=== PATIENT | male | born 1955 | race Caucasian/White ===

== ENCOUNTER → 2016-07-20 | Outpatient (CLI) | payer OTHER ==
[~2016-07-20] MED LIST: AMLODIPINE BESYL5 MG PO; CITALOPRAM HBR40 MG PO; HYDROCODON-ACE1 EAC7 PO; LEVAQUIN PO; LEVOXYL0.137 MG PO; LIPITOR40 MG PO; MOBIC PO; OMEPRAZOLE20 M2 PO; VITAMIN D32000 UNIT PO
--- NOTE | ~2016-07-20 | EKG ---
PATIENT: POLO SCOTT UNIT #: [id number] Ventricular Rate: 74 BPM Atrial Rate: 74 BPM P-R Interval: 172 ms QRS Duration: 92 ms Q-T Interval: 356 ms QTC Calculation(Bezet): 395 ms P [place]: 0 degrees Calculated R [place]: 41 degrees Calculated T [place]: 77 degrees Diagnosis Line: Normal sinus rhythm Diagnosis Line: Nonspecific T wave abnormality Diagnosis Line: Abnormal ECG Diagnosis Line: No previous ECGs available Diagnosis Line: Confirmed by MEIR NUÑEZ MD ([id number]) on Diagnosis Line: 07/22/2016 11:59:16 PM INTERPRETING MD: JOAQUIN GRIFFIN
[2016-07-20 12:45] LABS: HEMOGLOBIN 13.9 gm/dL (13.0-16.0); MEAN CELL VOLUME 88.2 FL (83-96); MEAN CORPUSCULAR HEMOGLOBIN 30.6 PG (28-34); MEAN CORPUSCULAR HGB CONC 34.7 g/dL (30-36); MEAN PLATELET VOLUME 7.9 FL (6.5-11.5); RED BLOOD COUNT 4.53 X10e (3.90-5.60); RED CELL DISTRIBUTION WIDTH 14.2 % (11.0-15.5); WHITE BLOOD COUNT 9.1 X10e3 (4.0-10.5)
[2016-07-20 13:14] LABS: BLOOD UREA NITROGEN 17 mg/dL (9-23); BUN/CREATININE RATIO 15.45; CALCIUM SERUM 9.4 mg/dL (8.4-10.2); CARBON DIOXIDE 28 mmol/L (22-31); CHLORIDE 103 mmol/L (100-111); CREATININE SERUM 1.1 mg/dL (0.6-1.4); GLOM FILT RATE Estimated ABOVE60 mL/min (>60); GLUCOSE FASTING 81 mg/dL (70-110); POTASSIUM 4.9 mmol/L (3.5-5.1); SODIUM 139 mmol/L (135-145)
[2016-07-20 13:34] LABS: URINE APPEARANCE CLEAR; URINE BILIRUBIN NEG (NEG); URINE BLOOD NEG (NEG); URINE COLOR YELLOW; URINE GLUCOSE NEG (NEG); URINE KETONE NEG (NEG); URINE LEUKOCYTE ESTERASE NEG (NEG); URINE NITRATE NEG (NEG); URINE PROTEIN NEG (NEG); URINE SPECIFIC GRAVITY 1.025 (1.003-1.035)
[2016-07-20 13:44] LABS: URINE SOURCE CLEAN CATCH
[2016-07-20 13:46] LABS: CULTURE INDICATED? NO
== END | disposition home or self-care (01) ==
LOC: CAMB 11:59
PROVIDERS: Orthopaedic Surgery
DX: Z01.818 Encounter for other preprocedural examination (principal); M19.011 Primary osteoarthritis, right shoulder; R94.31 Abnormal electrocardiogram [ECG] [EKG]
CPT/HCPCS: 36415; 80048; 81003; 85027; 87070; 93005

== ENCOUNTER 2016-08-01 05:16 | Inpatient (IN) | payer OTHER ==
--- NOTE | ~2016-08-01 | CR72 ---
[facility] A Service of [facility] & [facility] RADIOLOGY TEXT RESULTS PATIENT: POLO SCOTT LOCATION: C4B 451-01 : 55 UNIT #: [id number] AGE: [address]: aRvindra Larson MD SEX: M ORDER DR: [id number] [facility] [address] [place], [place] [address] [id number] I MR#: [id number] Acc #: [id number] NAME: POLO SCOTT : 1955 SEX: M STUDY DATE/TIME: 08/04/2016 10:34 UNIT: C4B ROOM: [facility] STUDY DESCRIPTION: CR Chest Single View Portable Attending Physician: Ravindra Larson M.D. Ordering Physician: Ravindra Larson M.D. Primary Care Physician: No Primary Care Physician MEDICAL IMAGING REPORT This report is preliminary unless electronic signature is present EXAM Portable AP view of the chest COMPARISON November 16, 2015. INDICATIONS A 60-year-old male with nausea, diaphoresis and dyspnea today. Right shoulder arthroplasty placement 3 days ago. FINDINGS There is a right shoulder hemiarthroplasty. The humeral component appears intact without evidence of complication. There is no dislocation. There is no evidence of pneumothorax. Lung volumes are quite low, and there is increasing elevation of the right hemidiaphragm. There is apparent cardiomegaly with cephalization of pulmonary vasculature and interstitial opacities seen in the right lower lobe and right midlung with more confluent opacification of the left lower chest likely a product of soft tissue attenuation and cardiac shadow. Findings may reflect bronchovascular crowding and/or atelectasis. Also consider pulmonary edema. While the appearance is unchanged, and a left lower chest small pleural effusion cannot be excluded. Correlation to exclude signs of developing pneumonia recommended. IMPRESSION Cardiomegaly with diminished lung volumes from comparison. Increased interstitial opacities throughout the lungs, possibly reflecting atelectasis or mild pulmonary edema. Opacification of the left lower chest is confluent, and not significantly changed from November 30, 2015, possibly a product of overlapping breast and cardiac shadow. Left basilar pneumonia or pleural effusion cannot entirely be excluded. Clinical correlation recommended. [facility] A Service of [facility] & [facility] RADIOLOGY TEXT RESULTS PATIENT: POLO SCOTT LOCATION: C4 451-01 : 55 UNIT #: [id number] AGE: [address]: Ravindra Larson MD SEX: M ORDER DR: Dictated by... Mahad Epstein M.D. THIS IS AN ELECTRONICALLY VERIFIED REPORT Mahad Epstein M.D. at 08/07/2016 10:07 AM Danna TD: 08/04/2016 22:00 JOB #: [id number] MEDICAL IMAGING REPORT Page 1 of 1 COPY
--- NOTE | ~2016-08-01 | EKG ---
PATIENT: POLO SCOTT UNIT #: [id number] Ventricular Rate: 83 BPM Atrial Rate: 83 BPM P-R Interval: 178 ms QRS Duration: 94 ms Q-T Interval: 384 ms QTC Calculation(Bezet): 451 ms P [place]: 69 degrees Calculated R [place]: 60 degrees Calculated T [place]: 87 degrees Diagnosis Line: Normal sinus rhythm Diagnosis Line: Nonspecific T wave abnormality Diagnosis Line: Otherwise normal ECG Diagnosis Line: When compared with ECG of 20-JUL-2016 12:16, Diagnosis Line: QT has lengthened Diagnosis Line: Confirmed by MISHEL ROMERO MD ([id number]) on 08/06/2016 Diagnosis Line: 10:53:08 PM INTERPRETING MD: NICK GRIFFIN
--- NOTE | ~2016-08-01 | CR63 ---
[facility] RADIOLOGY TEXT RESULTS PATIENT: POLO SCOTT LOCATION: C4B 451-01 : 55 UNIT #: [id number] AGE: [address]: Ravindra Larson MD SEX: M ORDER DR: [id number] [facility] [address] [place], [place] [address] [id number] I MR#: [id number] Acc #: [id number] NAME: POLO SCOTT : 1955 SEX: M STUDY DATE/TIME: 08/05/2016 18:11 UNIT: C4B ROOM: [facility] STUDY DESCRIPTION: CR Chest 2 View Attending Physician: Ravindra Larson M.D. Ordering Physician: Ed Doc Erica Porter Primary Care Physician: No Primary Care Physician MEDICAL IMAGING REPORT This report is preliminary unless electronic signature is present EXAM PA and lateral chest. HISTORY Congestion and shortness of air since yesterday. FINDINGS Mild cardiac enlargement is accentuated by low lung volumes. Mild elevation of the right hemidiaphragm. Probable minimal atelectasis in the right base. No definite pulmonary consolidation or pleural effusion. Right shoulder prosthesis. IMPRESSION 1. Probable minimal atelectasis in the right base. No definite airspace infiltrates. 2. There are moderate cardiac enlargement is accentuated by low lung volumes. Mild chronic elevation of the right hemidiaphragm. Dictated by... Brenden Marino M.D. THIS IS AN ELECTRONICALLY VERIFIED REPORT Brenden Marino M.D. at 08/06/2016 3:04 PM DFL/gz TD: 08/06/2016 09:04 JOB #: [id number] MEDICAL IMAGING REPORT Page 1 of 1 COPY
--- NOTE | ~2016-08-01 | CR230 ---
[facility] A Service of [facility] & [facility] RADIOLOGY TEXT RESULTS PATIENT: POLO SCOTT LOCATION: C4B 451-01 : 55 UNIT #: [id number] AGE: [address]: Ravindra Larson MD SEX: M ORDER DR: [id number] [facility] [address] [place], [place] [address] [id number] I MR#: [id number] Acc #: [id number] NAME: POLO SCOTT : 1955 SEX: M STUDY DATE/TIME: 08/01/2016 12:35 UNIT: C4B ROOM: [facility] STUDY DESCRIPTION: CR Shoulder Min 2 View Rt Attending Physician: Ravindra Larson M.D. Ordering Physician: Ravindra Larson M.D. Primary Care Physician: No Primary Care Physician MEDICAL IMAGING REPORT This report is preliminary unless electronic signature is present Exam Right shoulder 08/01/2016. INDICATIONS Status post shoulder arthroplasty today. COMPARISON 2 views of the right shoulder are compared with 04/19/2016. FINDINGS There has been right shoulder hemiarthroplasty. The humeral prosthesis appears well positioned. No complications are seen. Surgical drain is present. There is AC joint arthropathy. IMPRESSION Satisfactory appearance of right shoulder hemiarthroplasty. Dictated by... Alfredo Boucher Jr., M.D. THIS IS AN ELECTRONICALLY VERIFIED REPORT Alfredo Boucher Jr., M.D. at 08/02/2016 8:10 AM DENI/debbi TD: 08/01/2016 16:28 JOB #: [id number] MEDICAL IMAGING REPORT Page 1 of 1 COPY
--- NOTE | ~2016-08-01 | DS ---
Unit #: [id number] #: [id number] Patient: POLO PARRA [id number] [address] [place], [place] [address] [id number] I MR#: [id number] NAME: POLO PARRA ROOM: 451 Age: 60 Sex: M Admission Date: 08/01/2016 : 1955 Discharge Date: 08/07/2016 Attending Physician: Ravindra Larson M.D. Primary Care Physician: Primary Care Physician No DISCHARGE SUMMARY ADMITTING DIAGNOSIS Right glenohumeral joint arthritis. DISCHARGE DIAGNOSIS Right glenohumeral joint arthritis, status post right total shoulder arthroplasty. SECONDARY DIAGNOSES Include: 1. Right lower lobe atelectasis. 2. Urinary retention. 3. Status post laryngectomy with tracheostoma. 4. Hypertension. 5. Depression. 6. Hyperlipidemia. 7. Hypothyroidism. 8. Vitamin D deficiency. 9. Gastroesophageal reflux disease. 10. Benign prostatic hypertrophy. 11. History of laryngeal cancer. CONSULTING PHYSICIANS 1. Dr. Fernandez, Urology. 2. Dr. Schmitz, Pulmonary. PROCEDURES On 08/01/2016, the patient underwent a right total shoulder arthroplasty. Please see operative report for further details. HISTORY Mr. Parra is a 60-year-old male who has right shoulder osteoarthritis. He has failed conservative management and was referred to us to discuss right total shoulder arthroplasty. The risks, benefits, and alternatives were discussed with the patient and he elected to proceed with surgery on 08/01/2016. HOSPITAL COURSE The night of surgery, the patient was transferred to the orthopedic unit for postoperative care. The night of surgery, the patient remained stable. Postop x-rays of the right shoulder showed that he was status post right total shoulder arthroplasty. Hardware remained in correct anatomical alignment, no evidence of loosening or migration. Unit #: [id number] #: [id number] Patient: POLO PARRA On postop day #1, the patient's vital signs remained stable. His oxygen was 98% on 5 L of oxygen. He was awake, alert, and oriented x3, in no acute distress. His right upper extremity incision was clean, dry, and intact with a small amount of serosanguineous drainage on the dressing. He had no surrounding erythema, warmth, or hematoma. He was neurovascularly intact in the median, ulnar, and radial nerves. He had normal sensation to light touch in all 5 digits. He had 85 mL of serosanguineous drainage out of his Hemovac drain overnight. This was discontinued in the room on postop day #1. He remained nonweightbearing of the right upper extremity in a sling. He worked with physical therapy on pendulum as well as range of motion in the elbow, wrist, and hand. Pain meds were increased on postop day #1 due to poor pain control. He was on aspirin and SCDs for DVT prophylaxis. His white blood cell count was 9.3 and hemoglobin was 11.6. The patient had difficulty voiding and so Urology was consulted and a Ferro catheter was placed. On postop day #2, the patient remained stable. He was afebrile and his vital signs were stable. We were able to wean his oxygen and he was stable on room air. His incision was clean, dry, and intact with no surrounding erythema, warmth, or hematoma. He remained neurovascularly intact in the median, ulnar, and radial nerves. He had normal sensation to light touch in all 5 digits. His white blood cell count was 8.7 and hemoglobin was 10.8. He continued to work with physical therapy. shutdown planner was consulted for discharge to subacute rehab versus home health. The patient was seen by Dr. Fernandez, who ordered for the Ferro to be discharged on postop day #3. On postop day #3, the patient was complaining of chest pain and shortness of breath. He was afebrile. His blood pressure, heart rate, and oxygen levels remained stable. He was awake, alert, and oriented x3. His right upper extremity incision was clean, dry, and intact, and he was neurovascularly intact distally. A stat portable chest x-ray was ordered, which showed a left pleural effusion versus developing pneumonia. A stat EKG showed that he had a normal sinus rhythm. He had negative troponin and negative BNP. His CK was drawn, which was initially 525. This continued to trend down throughout the day and was 490 later in the day. Pulmonary was consulted for further workup. On postop day #4, the patient reported feeling better, but he still had excess sputum production. He was afebrile, and his vital signs were stable. He was awake, alert, and oriented x3, in no acute distress. His right upper extremity dressing was clean, dry, and intact. He was neurovascularly intact distally. A chest x-ray was repeated, which showed minimal atelectasis in the base of the right lung as well as mild chronic elevation of the right hemidiaphragm. Sputum was sent for Gram stain and culture. The patient was seen by Pulmonary, who ordered repeat labs and repeat chest x-ray. One-time dose of Lasix was ordered and given. They did not feel that the patient had pneumonia, but we continued to monitor his sputum cultures. They also wanted to rule out any cardiac etiologies. At this point, the patient's urinary retention had resolved. On postop day #5, the patient remained stable and he reported that his shortness of air had improved. He was afebrile, and vital signs were stable. He was awake, alert, and oriented x3, in no acute distress. His right upper extremity dressing was clean, dry, and intact. He was neurovascularly intact distally. His sputum Gram stain showed gram-negative rods, gram-positive cocci, and gram-positive rods. The Unit #: [id number] #: [id number] Patient: POLO PARRA cultures were pending at this time. Chest x-ray showed atelectasis of the right mid-lower lung. Breathing treatments were ordered by Pulmonary and a repeat chest x-ray for 08/07/2016 was ordered to be taken. On postop day #6, the patient remained stable. He reports that the shortness of air is improving. His vital signs are stable. His right upper extremity incision is clean, dry, and intact. He is neurovascularly intact distally. He has symmetric chest rise and no increased work of breathing. Repeat chest x-ray showed stable cardiomegaly with chronic elevation of the right hemidiaphragm. There was some persistent atelectasis in the right lung base. Pulmonary felt that this could be related to questionable paralysis secondary to radical neck dissection after laryngectomy with tracheostoma in the past. They prescribed Levaquin for 7 days and we would like him to follow up in the office in 3 weeks' time. At this time, we will plan to discharge him home with home health. CONDITION AT DISCHARGE Stable. DISPOSITION The patient will be discharged home where he has family and home health to help with postoperative care. DISCHARGE MEDICATIONS Celexa 40 mg p.o. daily; Norvasc 5 mg p.o. daily; Lipitor 40 mg p.o. daily; Synthroid 0.137 mg p.o. daily; vitamin D3 2000 units p.o. b.i.d.; Levaquin 500 mg 1 tab p.o. daily x7 days, the script was left for the patient; [place] 7.5/325 mg 1 to 2 tabs p.o. q.4 hours p.r.n., dispense #65, prescription was also left for the patient. DISCHARGE INSTRUCTIONS The patient will follow up with Dr. Larson on 08/21/2016. He will follow up with Dr. Schmitz in 3 weeks' time. He will remain nonweightbearing of the right upper extremity in a sling. He may remove his sling 2 to 3 times per day to perform pendulum as well as range of motion of the elbow, wrist, and hand. He will perform daily dressing changes at the right upper extremity incision site. He may shower, but he is not to get his incision wet. He must keep an occlusive dressing over the incision site when showering. Dictated by... Ben Thompson APRN for Erica Borjas/andrew TD: 08/08/2016 15:13 JOB #: [id number] Unit #: [id number] #: [id number] Patient: POLO PARRA DISCHARGE SUMMARY Page 1 of 1 X BEN THOMPSON APRN X DISCHARGE SUMMARY
--- NOTE | ~2016-08-01 | CO ---
Unit #: [id number] #: [id number] Patient: POLO SCOTT [id number] [address] [place], [place] [address] [id number] I MR#: [id number] NAME: POLO SCOTT ROOM: 451 Age: 60 Sex: M Admission Date: 08/01/2016 : 1955 Attending Physician: Ravindra Larson M.D. Consultation Date: 08/05/2016 CONSULTATION REPORT REASON FOR CONSULTATION Abnormal chest x-ray. HISTORY OF PRESENT ILLNESS This is a 60-year-old male, who is postop day #4 right total shoulder arthroplasty. Yesterday, he started developing some nausea and congestion, which has since resolved, but then he has been complaining of some rattling in the chest and feeling little bit more short of breath than normal. The patient has laryngectomy secondary to history of laryngeal cancer and was intubated for this procedure. He has had no fevers or elevation in his white count. He is a lifelong nonsmoker and has no history of COPD. He does not go on a ventilator at night, but has never been checked for sleep apnea, but has open stoma. He denies any history of heart disease. He does have some high blood pressure. He has had no stroke in the past. PAST MEDICAL HISTORY Laryngeal CA, esophageal reflux disease, hypertension, hypothyroidism, dyslipidemia, and BPH. PAST SURGICAL HISTORY Laryngectomy, right total shoulder arthroplasty, knee surgery, prostate biopsy. ALLERGIES None. MEDICATIONS The patient is on Lipitor, Senokot, Flomax, Celexa, Norvasc, and Synthroid. SOCIAL HISTORY The patient denies any history of tobacco, alcohol, or illicit drug use. His vaccination status is unknown. FAMILY HISTORY Noncontributory. REVIEW OF SYSTEMS Complete review of systems was performed, pertinent positives include chief complaint. PHYSICAL EXAMINATION VITAL SIGNS: Currently stable. He is afebrile. He has been afebrile since admission. Unit #: [id number] #: [id number] Patient: POLO SCOTT HEENT: Eyes; PERRLA. Extraocular movements are intact. Sclerae are clear. Nose is patent and symmetrical. Throat without erythema or exudate. NECK: With an open stoma. HEART: Regular rate and rhythm without murmur appreciated. No thrills palpated. LUNGS: Rales bilaterally. There is no egophony or dullness to percussion. ABDOMEN: Soft, obese, nontender. EXTREMITIES: Without clubbing, cyanosis, or edema. SKIN: Warm, dry, and intact. LABORATORY STUDIES LABORATORY RESULTS: Reviewed by myself. IMAGING STUDIES: Chest x-ray, reviewed by myself. IMPRESSION 1. Acute bilateral pulmonary opacities, suspect secondary to pulmonary edema from volume during procedure and since admission, doubt pneumonia as the patient has no fever and no white count; however, we will check cultures. 2. Status post right total shoulder arthroplasty. 3. Hypothyroidism. 4. History of laryngeal cancer, status post laryngectomy. RECOMMENDATIONS 1. We will check O2 sats. 2. Check troponin and BNP. 3. Hep-Lock IV fluids. 4. Lasix x1. 5. Check sputum cultures. 6. We will follow. Dictated by... Kodi Whitlock/andrew TD: 08/06/2016 03:55 JOB #: [id number] CONSULTATION REPORT Page 1 of 1 X Michaela Kumar DO X CONSULTATION REPORT
--- NOTE | ~2016-08-01 | DS ---
Unit #: [id number] #: [id number] Patient: POLO SCOTT [id number] [address] [address] [id number] I MR#: [id number] NAME: POLO SCOTT ROOM: [facility] Age: 60 Sex: M Admission Date: 08/01/2016 : 1955 Discharge Date: 08/07/2016 Attending Physician: Ravindra Larson M.D. Primary Care Physician: Primary Care Physician No DISCHARGE SUMMARY ADDENDUM Ben Thompson APRN dictating for Dr. Larson. On 08/07/2016, sputum culture results were positive for Serratia marcescens. Since the cultures were sensitive to Levaquin, Dr. Schmitz with Pulmonary order for the patient to be on a 7 day course of Levaquin and follow up in his office in 3 weeks' time for a chest x-ray. The patient was seen by Dr. Rawls for urinary retention. A Ferro catheter was placed on 08/03/2016. The patient remained on Flomax. Dr. Rawls ordered for the Ferro to be removed on 08/04/2016. Then a voiding trial was conducted. The patient was able to void after the Ferro catheter was removed and his urinary retention resolved. Dictated by... Ben Thompson APRN for Erica Borjas/andrew TD: 08/08/2016 22:33 JOB #: [id number] DISCHARGE SUMMARY Page 1 of 1 X BEN THOMPSON APRN X DISCHARGE SUMMARY
--- NOTE | ~2016-08-01 | CO ---
Unit #: [id number] #: [id number] Patient: POLO SCOTT [id number] [address] [place], [place] [address] [id number] I MR#: [id number] NAME: POLO SCOTT ROOM: 451 Age: 60 Sex: M Admission Date: 08/01/2016 : 1955 Attending Physician: Ravindra Larson M.D. Primary Care Physician: No Primary Care Physician Requesting Physician: Ravindra Larson M.D. CONSULTATION REPORT REASON FOR CONSULTATION Urinary retention. HISTORY OF PRESENT ILLNESS The patient is a 60-year-old male who is postoperative day 2 from a right total shoulder arthroplasty and right shoulder biceps tenodesis. He was followed for a transiently elevated PSA in our office, but he has not had significant BPH symptoms. He required in and out catheterization and ultimately a Ferro catheter after surgery. He was started on Flomax 2 days ago. PAST MEDICAL HISTORY 1. Throat cancer. 2. Gastroesophageal reflux disease. 3. Hypertension. PAST SURGICAL HISTORY 1. Throat surgery. 2. Right shoulder. 3. Knee. 4. Prostate biopsy. SOCIAL HISTORY Negative for alcohol. PHYSICAL EXAMINATION GENERAL: Well-developed, obese white male in no acute distress. VITALS: Temperature 99.1, blood pressure 132/71, pulse 81, respiratory rate 20. HEENT: Normocephalic, atraumatic. The patient is appearing comfortable. He has a sling on his right shoulder. ABDOMEN: Soft, nontender and nondistended. Ferro catheter is draining clear urine. RECTAL: Digital rectal exam reveals a mildly enlarged prostate with no nodules. ASSESSMENT Urinary retention. PLAN I agree with the Flomax. Will plan a voiding trial tomorrow. If he fails the voiding trial, he can go home with his Ferro catheter on Flomax and we will repeat the voiding in our office in one week. Unit #: [id number] #: [id number] Patient: POLO SCOTT Dictated by..Tirso Rawls M.D. MDP/gz TD: 08/03/2016 15:30 JOB #: [id number] CONSULTATION REPORT Page 1 of 1 X Ian Rawls MD CONSULTATION REPORT
--- NOTE | ~2016-08-01 | OR ---
Unit #: [id number] #: [id number] Patient: POLO PARRA [id number] [address] [place], [place] [address] [id number] MR#: [id number] NAME: POLO PARRA ROOM: [facility] Date of Procedure: 08/01/2016 Admission Date: 08/01/2016 Surgeon: Ravindra Larson M.D. : 1955 Attending Physician: Ravindra Larson M.D. Primary Care Physician: Primary Care Physician No OPERATIVE REPORT PREOPERATIVE DIAGNOSIS Right shoulder osteoarthritis. POSTOPERATIVE DIAGNOSES 1. Right shoulder osteoarthritis. 2. Biceps tenosynovitis. PROCEDURES PERFORMED 1. Right total shoulder arthroplasty. 2. Right shoulder biceps tenodesis. IMPLANTS 1. DJO Surgical size 14 AltiVate short humeral stem with a 50 x 18 mm eccentric offset humeral head component. 2. DJO Surgical AltiVate cemented E-+ all-polyethylene glenoid, 50 mm. LOADER ENGINEER Olga Singh APRN, RNFA. ANESTHESIA General with interscalene nerve block. ESTIMATED BLOOD LOSS 200 mL. COMPLICATIONS None apparent. SPECIMENS Humeral head to Pathology. INDICATIONS FOR PROCEDURE Mr. Parra is a 60-year-old gentleman with right shoulder osteoarthritis, who has failed conservative management. We have discussed total shoulder arthroplasty. Risks, benefits, and alternatives have been reviewed and he elected to proceed. DESCRIPTION OF PROCEDURE The patient was identified in the preoperative holding area. The operative site was marked. A preoperative regional anesthetic block was performed. Preoperative antibiotics were administered. The patient was brought to the operating room and placed supine on the operating table. A Unit #: [id number] #: [id number] Patient: OPLO PARRA general anesthetic was induced. The patient was positioned in a beach-chair position. The right upper extremity was prepped and draped in sterile fashion. A standard deltopectoral approach was performed. The cephalic vein was taken medially with the pectoralis major muscle. The subdeltoid space was developed. The rotator cuff was intact. The long head of the biceps tendon sheath was opened. There was hypertrophic tenosynovium over the biceps. A biceps tenodesis was performed to the superior border of the pectoralis major tendon with a running locking Krackow suture utilizing #2 FiberWire. The sheath was opened up all the way into the rotator interval and the biceps tendon excised. The lesser tuberosity osteotomy was performed and the shoulder was dislocated anteriorly. The capsular attachments were taken down and released. The head was fully exposed. Osteotome was used to remove osteophytes around the humeral head. The extramedullary cutting guide was secured in 30 degrees of retroversion and the humeral head osteotomy performed. The humerus was then dislocated posteriorly and attention turned to glenoid exposure. A circumferential capsular labral release was performed. The labrum was excised. Once we had achieved adequate glenoid exposure, the glenoid was sized to a size 50 mm component. The centering pin was then drilled. We then reamed with a 50 mm reamer. The patient had slight preferential posterior wear with a clearly visible tidemark, but no significant posterior glenoid loss and really not even a B2 type morphology. This is more consistent with a B1 glenoid. The 3 peripheral peg holes were drilled followed by the centering hole. We then trialed the glenoid, which had good stability. We then prepared the glenoid for cementing according to standard technique. Cement was mixed and we cemented all 4 peg holes. The real component was opened and impacted in place. Initial curing of the cement was performed and then attention was turned to the humerus. The humerus was then reamed and broached up to a size 14. The real 14 stem was opened and impacted in place. Prior to stem insertion, 4 FiberTape sutures were passed through the humeral canal and around the stem for subscap repair. We put in place the real 50 x 18 mm eccentric head. The arm was taken through range of motion and the shoulder had good stability with a humeral head well aligned at the glenoid with the arm in neutral rotation. We had good 50% posterior pushback and spontaneous recentering on the glenoid. The lesser tuberosity was then repaired with 4 FiberTape sutures. The rotator interval was closed. The wound was irrigated with pulsatile lavage. A subdeltoid drain was placed. The wound was closed in a layered fashion with 0 Vicryl, 2-0 Vicryl, and Monocryl in the skin. Steri-Strips and sterile dressings were applied. DISPOSITION Stable to the recovery room. Dictated by... Ravindra Larson M.D. ANA/andrew TD: 08/02/2016 05:22 JOB #: [id number] Unit #: [id number] #: [id number] Patient: POLO PARRA OPERATIVE REPORT Page 1 of 1 X Ravindra Larson MD PROCEDURE OPERATIVE NOTE
--- NOTE | ~2016-08-01 | CR72 ---
[facility] Service of [facility] & [facility] RADIOLOGY TEXT RESULTS PATIENT: POLO SCOTT LOCATION: [facility] 451 : 55 UNIT #: [id number] AGE: [address]: Ravindra Larson MD SEX: M ORDER DR: [id number] [facility] [address] [place], [place] [address] [id number] I MR#: [id number] Acc #: [id number] NAME: POLO SCOTT : 1955 SEX: M STUDY DATE/TIME: 08/06/2016 6:18 UNIT: C4B ROOM: [facility] STUDY DESCRIPTION: CR Chest Single View Portable Attending Physician: Ravindra Larson M.D. Ordering Physician: Michaela Kumar D.O. Primary Care Physician: No Primary Care Physician MEDICAL IMAGING REPORT This report is preliminary unless electronic signature is present EXAM Portable chest x-ray 08/06/2016. HISTORY Left lung effusion versus pneumonia. TECHNIQUE AP radiograph of the chest presented today. COMPARISON 08/05/2016. FINDINGS Postoperative changes right shoulder arthroplasty. Stable moderate cardiac enlargement. Stable elevation right hemidiaphragm. Band-like subsegmental atelectasis right mid to lower lung zone, more conspicuous than on yesterday's examination, but probably not changed in overall extent. Remainder of right lung clear. Left lung shows no compelling evidence of pneumonia. No dense airspace disease, pleural effusion or pneumothorax. Healed granulomatous disease in the right lung is stable. No suspicious nodule. Dictated by... Gallo Moreira M.D. THIS IS AN ELECTRONICALLY VERIFIED REPORT Gallo Moreira M.D. at 08/07/2016 6:04 PM GIACOMO/debbi TD: 08/06/2016 11:46 JOB #: [id number] MEDICAL IMAGING REPORT [facility] Service of [facility] RADIOLOGY TEXT RESULTS PATIENT: POLO SCOTT LOCATION: [facility] : 55 UNIT #: [id number] AGE: [address]: Ravindra Larson MD SEX: M ORDER DR: Page 1 of 1 COPY
--- NOTE | ~2016-08-01 | CR63 ---
[facility] A Service of [facility] & [facility] RADIOLOGY TEXT RESULTS PATIENT: POLO SCOTT LOCATION: C4B 451-01 : 55 UNIT #: [id number] AGE: [address]: Ravindra Larson MD SEX: M ORDER DR: [id number] [facility] [address] [place], [place] [address] [id number] I MR#: [id number] Acc #: [id number] NAME: POLO SCOTT : 1955 SEX: M STUDY DATE/TIME: 08/07/2016 7:06 UNIT: C4B ROOM: [facility] STUDY DESCRIPTION: CR Chest 2 View Attending Physician: Ravindra Larson M.D. Ordering Physician: Nahid Schmitz Primary Care Physician: Primary Care Physician No MEDICAL IMAGING REPORT This report is preliminary unless electronic signature is present EXAM Chest x-ray, 08/07/16 INDICATIONS Shortness of air and weakness. History of laryngeal cancer and hypertension. FINDINGS 2 views of the chest are compared 08/06/2016. Cardiomegaly is stable. There is chronic elevation of the right hemidiaphragm. There is a persistent right lung base atelectasis. No pneumothorax is seen. Patient has a right shoulder arthroplasty. IMPRESSION Stable cardiomegaly with chronic elevation of the right hemidiaphragm. There is some persistent atelectasis in the right lung base. Dictated by... Alfredo Boucher Jr., M.D. THIS IS AN ELECTRONICALLY VERIFIED REPORT Alfredo Boucher Jr., M.D. at 08/07/2016 1:37 PM DENI/denia TD: 08/07/2016 12:10 JOB #: [id number] MEDICAL IMAGING REPORT Page 1 of 1 COPY
[~2016-08-01 05:16] MED LIST changes: -HYDROCODON-ACE1 EAC7 PO; -LEVAQUIN PO
[2016-08-02 04:46] LABS: HEMATOCRIT 34.4 % (38.0-50.0); HEMOGLOBIN 11.6 gm/dL (13.0-16.0); MEAN CELL VOLUME 90.4 FL (83-96); MEAN CORPUSCULAR HEMOGLOBIN 30.5 PG (28-34); MEAN CORPUSCULAR HGB CONC 33.7 g/dL (30-36); MEAN PLATELET VOLUME 7.7 FL (6.5-11.5); RED BLOOD COUNT 3.81 X10e (3.90-5.60); RED CELL DISTRIBUTION WIDTH 14.9 % (11.0-15.5); WHITE BLOOD COUNT 9.3 X10e3 (4.0-10.5)
[2016-08-03 04:17] LABS: HEMOGLOBIN 10.8 gm/dL (13.0-16.0); MEAN CELL VOLUME 90.7 FL (83-96); MEAN CORPUSCULAR HEMOGLOBIN 31.5 PG (28-34); MEAN CORPUSCULAR HGB CONC 34.7 g/dL (30-36); MEAN PLATELET VOLUME 7.5 FL (6.5-11.5); RED BLOOD COUNT 3.42 X10e (3.90-5.60); WHITE BLOOD COUNT 8.7 X10e3 (4.0-10.5)
[2016-08-04 11:55] LABS: BASOPHIL% 0.3 % (0-2.5); EOSINOPHIL# 0.2 X10e3 (0-0.7); EOSINOPHIL% 2.2 % (0.0-7.0); HEMATOCRIT 29.8 % (38.0-50.0); HEMOGLOBIN 10.4 gm/dL (13.0-16.0); LYMPHOCYTE# 0.8 X10e3 (1.0-3.5); LYMPHOCYTE% 9.6 % (17.0-45.0); MEAN CELL VOLUME 89.5 FL (83-96); MEAN CORPUSCULAR HEMOGLOBIN 31.3 PG (28-34); MEAN CORPUSCULAR HGB CONC 34.9 g/dL (30-36); MEAN PLATELET VOLUME 7.7 FL (6.5-11.5); MONOCYTE# 0.8 X10e3 (0-1.0); MONOCYTE% 10.1 % (3.0-12.0); NEUTROPHIL# 6.4 X10e3 (1.5-7.1); NEUTROPHIL% 77.8 % (40-75); PLATELET COUNT 248 X10e3 (140-420); RED BLOOD COUNT 3.33 X10e (3.90-5.60); RED CELL DISTRIBUTION WIDTH 14.8 % (11.0-15.5); WHITE BLOOD COUNT 8.2 X10e3 (4.0-10.5)
[2016-08-04 11:58] LABS: DIFF IND NO
[2016-08-04 12:50] LABS: %MB 1.5 % (0.0-4.0); MB 7.9 ng/ml
[2016-08-04 12:51] LABS: BUN/CREATININE RATIO 12.72; CALCIUM SERUM 8.3 mg/dL (8.4-10.2); CREATININE SERUM 1.1 mg/dL (0.6-1.4); GLOM FILT RATE Estimated 72.6 mL/min (>60); POTASSIUM 4.3 mmol/L (3.5-5.1)
[2016-08-04 17:08] LABS: %MB 0.6 % (0.0-4.0)
[2016-08-04 23:27] LABS: %MB 0.7 % (0.0-4.0); MB 3.6 ng/ml
[2016-08-05 10:23] LABS: BASOPHIL% 0.9 % (0-2.5); EOSINOPHIL# 0.3 X10e3 (0-0.7); EOSINOPHIL% 4.7 % (0.0-7.0); HEMATOCRIT 30.8 % (38.0-50.0); HEMOGLOBIN 10.5 gm/dL (13.0-16.0); LYMPHOCYTE# 0.7 X10e3 (1.0-3.5); LYMPHOCYTE% 11.9 % (17.0-45.0); MEAN CELL VOLUME 89.9 FL (83-96); MEAN CORPUSCULAR HEMOGLOBIN 30.5 PG (28-34); MEAN CORPUSCULAR HGB CONC 33.9 g/dL (30-36); MEAN PLATELET VOLUME 7.9 FL (6.5-11.5); MONOCYTE# 0.5 X10e3 (0-1.0); MONOCYTE% 9.7 % (3.0-12.0); NEUTROPHIL# 4.1 X10e3 (1.5-7.1); NEUTROPHIL% 72.8 % (40-75); PLATELET COUNT 270 X10e3 (140-420); RED BLOOD COUNT 3.43 X10e (3.90-5.60); RED CELL DISTRIBUTION WIDTH 14.6 % (11.0-15.5); WHITE BLOOD COUNT 5.6 X10e3 (4.0-10.5)
[2016-08-05 10:24] LABS: DIFF IND NO
[2016-08-05 16:27] LABS: CALCIUM SERUM 8.6 mg/dL (8.4-10.2); CREATININE SERUM 0.9 mg/dL (0.6-1.4); GLOM FILT RATE Estimated 92.5 mL/min (>60); POTASSIUM 4.6 mmol/L (3.5-5.1)
[2016-08-07] MEDS ORDERED: LEVAQUIN PO (16:13)
[2016-08-07] MEDS ORDERED: HYDROCODON-ACE1 EAC7 PO (16:13)
== END 2016-08-07 18:30 | disposition home health service (06) | DRG 483 ==
LOC: CSUR 05:16 → CPACUOF 07:20 → C4B 14:33
PROVIDERS: Internal Medicine Pulmonary Disease; Orthopaedic Surgery
PROC: 0LS30ZZ Reposition Right Upper Arm Tendon, Open Approach (ICD-10-PCS; 2016-08-01)
PROC: 0RRJ0JZ Replacement of Right Shoulder Joint with Synthetic Substitute, Open Approach (ICD-10-PCS; principal; 2016-08-01 07:30)
DX: M19.011 Primary osteoarthritis, right shoulder (principal); E66.01 Morbid (severe) obesity due to excess calories; I10 Essential (primary) hypertension; J98.11 Atelectasis; Z85.21 Personal history of malignant neoplasm of larynx; K21.9 Gastro-esophageal reflux disease without esophagitis; E03.9 Hypothyroidism, unspecified; E78.5 Hyperlipidemia, unspecified; N40.1 Benign prostatic hyperplasia with lower urinary tract symptoms; R33.8 Other retention of urine; M65.811 Other synovitis and tenosynovitis, right shoulder; N99.89 Other postprocedural complications and disorders of genitourinary system; R11.0 Nausea; R19.7 Diarrhea, unspecified; J98.6 Disorders of diaphragm; Z68.35 Body mass index [BMI] 35.0-35.9, adult
CPT/HCPCS: 71010; 71020; 73030; 80048; 82550; 82553; 82947; 83880; 84484; 85025; 85027; 87070; 87077; 87186; 87205; 88304; 88311; 93005; 94640; 94760; 97110; 97116; 97163; 97530; C1713; C1776; J0131; J0690; J1170; J1940; J2250; J2270; J2370; J2405; J2710; J2795; J3010; J3370